=== PATIENT | female | born 1990 | race Caucasian/White ===

== ENCOUNTER 2017-06-13 17:09 | Emergency (ER) | payer OTHER | END 2017-06-13 18:03 | disposition home or self-care (01) | LOC: E/R 17:09 | DX: H11.421 Conjunctival edema, right eye (principal) | CPT/HCPCS: 99283; Z7502 ==

== ENCOUNTER 2018-04-04 17:43 | Emergency (ER) | payer OTHER ==
[2018-04-04] MEDS: ONDANSETRON (ODT) 4 MG TAB ODT (18:39)
[2018-04-04 18:48] LABS: ADD MAN DIFF? NO
[2018-04-04 18:50] LABS: BASOPHILS % 0.2 % (0.0-2.0); EOSINOPHILS % 0.4 % (0.0-7.0); HEMATOCRIT 38.7 % (37.0-47.0); HEMOGLOBIN 12.9 g/dl (12.0-16.0); LYMPHOCYTES # 1.2 10^3/ul (0.8-2.9); LYMPHOCYTES % 10.8 % (15.0-51.0); MEAN CORPUSCULAR HEMOGLOBIN 29.8 pg (29.0-33.0); MEAN CORPUSCULAR HGB CONC 33.3 g/dl (32.0-37.0); MEAN CORPUSCULAR VOLUME 89.4 fl (82.0-101.0); MEAN PLATELET VOLUME 9.8 fl (7.4-10.4); MONOCYTE # 0.5 10^3/ul (0.3-0.9); MONOCYTES % 4.9 % (0.0-11.0); NEUTROPHIL # 8.9 10^3/ul (1.6-7.5); NEUTROPHILS % 83.3 % (39.0-77.0); PLATELET COUNT 345 10^3/UL (140-415); RED BLOOD COUNT 4.33 10^6/ul (4.20-5.40); RED CELL DISTRIBUTION WIDTH 14.1 % (11.5-14.5)
[2018-04-04 18:50] LABS: WHITE BLOOD COUNT 10.6 10^3/ul (4.8-10.8)
[2018-04-04 19:29] LABS: ALANINE AMINOTRANSFERASE 20 IU/L (13-69); ALBUMIN 3.8 g/dl (3.3-4.9); ALBUMIN/GLOBULIN RATIO 1.22; ALKALINE PHOSPHATASE 70 IU/L (42-121); ANION GAP 9 (5-13); ASPARTATE AMINO TRANSFERASE 13 IU/L (15-46); BILIRUBIN,INDIRECT 0.3 mg/dl (0-1.1); BILIRUBIN,TOTAL 0.3 mg/dl (0.2-1.3); BLOOD UREA NITROGEN 4 mg/dl (7-20); CALCIUM 9.2 mg/dl (8.4-10.2); CARBON DIOXIDE 22 mmol/L (21-31); CHLORIDE 106 mmol/L (97-110); CREATININE 0.45 mg/dl (0.44-1.00); Estimated GFR > 60 mL/min (>60); GLUCOSE 110 mg/dl (70-220); LIPASE 35 U/L (23-300); POTASSIUM 4.1 mmol/L (3.5-5.1); SODIUM 137 mmol/L (135-144); TOTAL PROTEIN 6.9 g/dl (6.1-8.1)
[2018-04-04 19:52] LABS: ADD UMIC YES; UR ASCORBIC ACID NEGATIVE (NEGATIVE); UR BILIRUBIN (Dip) NEGATIVE (NEGATIVE); UR BLOOD (Dip) NEGATIVE (NEGATIVE); UR CLARITY CLOUDY (CLEAR); UR COLOR AMBER (YELLOW); UR GLUCOSE (Dip) NEGATIVE (NEGATIVE); UR KETONES (Dip) 1+ mg/dL (NEGATIVE); UR LEUKOCYTE ESTERASE (Dip) TRACE Leu/ul (NEGATIVE); UR MUCUS MANY /HPF (NONE SEEN); UR NITRITE (Dip) NEGATIVE (NEGATIVE); UR RBC 2 /HPF (0-5); UR SPECIFIC GRAVITY (Dip) 1.027 (1.003-1.030); UR SQUAMOUS EPITHELIAL CELL FEW /HPF (FEW); UR TOTAL PROTEIN (Dip) 1+ mg/dl (NEGATIVE); UR UROBILINOGEN (Dip) 1+ mg/dL (NEGATIVE); UR WBC 3 /HPF (0-5)
== END 2018-04-04 20:42 | disposition home or self-care (01) ==
LOC: FTE 17:43
DX: O26.892 Other specified pregnancy related conditions, second trimester (principal); R10.13 Epigastric pain; R40.2412 Glasgow coma scale score 13-15, at arrival to emergency department; O21.9 Vomiting of pregnancy, unspecified; Z3A.19 19 weeks gestation of pregnancy
CPT/HCPCS: 36415; 80053; 81001; 83690; 85025; 99283

== ENCOUNTER 2018-06-24 12:35 | Outpatient (CLI) | payer OTHER ==
[2018-06-24 14:03] LABS: ADD UMIC YES; UR ASCORBIC ACID NEGATIVE (NEGATIVE); UR BACTERIA FEW /HPF (NONE SEEN); UR BILIRUBIN (Dip) NEGATIVE (NEGATIVE); UR BLOOD (Dip) NEGATIVE (NEGATIVE); UR CLARITY SLIGHTLY CLOUDY (CLEAR); UR COLOR YELLOW (YELLOW); UR GLUCOSE (Dip) NEGATIVE (NEGATIVE); UR KETONES (Dip) 1+ mg/dL (NEGATIVE); UR LEUKOCYTE ESTERASE (Dip) 2+ Leu/ul (NEGATIVE); UR NITRITE (Dip) NEGATIVE (NEGATIVE); UR RBC 0 /HPF (0-5); UR SPECIFIC GRAVITY (Dip) 1.013 (1.003-1.030); UR SQUAMOUS EPITHELIAL CELL FEW /HPF (FEW); UR TOTAL PROTEIN (Dip) NEGATIVE (NEGATIVE); UR UROBILINOGEN (Dip) NEGATIVE (NEGATIVE); UR WBC 4 /HPF (0-5)
[2018-06-24 14:20] LABS: RUPTURE FETAL MEMBRANES NEGATIVE (NEGATIVE)
[2018-06-24 14:24] LABS: AMPHETAMINE/METHAMPHETAMINE Negative (NEGATIVE); BARBITURATES Negative (NEGATIVE); BENZODIAZEPINES Negative (NEGATIVE); CANNABINOIDS Negative (NEGATIVE); COCAINE Negative (NEGATIVE); OPIATES Negative (NEGATIVE)
== END 2018-06-24 15:05 | disposition home or self-care (01) ==
LOC: OBT 12:35 → L-D 12:37 → OBT 15:05
DX: O62.9 Abnormality of forces of labor, unspecified (principal); Z3A.30 30 weeks gestation of pregnancy
CPT/HCPCS: 76815; 76817; 76818; 80307; 81001; 82731; 84112

== ENCOUNTER 2018-08-13 20:00 | Outpatient (CLI) | payer MEDICAID, OTHER | END 2018-08-13 22:55 | disposition home or self-care (01) | LOC: OBT 20:00 → L-D 20:01 → OBT 22:55 | DX: O36.8130 Decreased fetal movements, third trimester, not applicable or unspecified (principal); Z3A.37 37 weeks gestation of pregnancy | CPT/HCPCS: 76815; 76818 ==

== ENCOUNTER 2018-08-22 07:30 | Inpatient (IN) | payer MEDICAID ==
[2018-08-22] MEDS ORDERED: IBUPROFEN 600 MG TAB PO (08:30)
[2018-08-22] MEDS ORDERED: OXYTOCIN 30 UNITS/LR 500 ML IV (08:30)
[2018-08-22] MEDS ORDERED: METHYLERGONOVINE 0.2 MG INJ IM (08:30)
[2018-08-22] MEDS ORDERED: CARBOPROST 250 MCG INJ IM (08:30)
[2018-08-22] MEDS ORDERED: LIDOCAINE 1% (MPF) 30 ML INJ INJ (08:30)
[2018-08-22] MEDS ORDERED: MISOPROSTOL 200 MCG TAB PR (08:30)
[2018-08-22] MEDS ORDERED: BUTORPHANOL 2 MG INJ IV (08:30)
[2018-08-22 08:56] LABS: ADD MAN DIFF? NO
[2018-08-22 09:03] LABS: BASOPHILS % 0.4 % (0.0-2.0); EOSINOPHILS # 0.2 10^3/ul (0.0-0.5); EOSINOPHILS % 1.4 % (0.0-7.0); HEMATOCRIT 34.6 % (37.0-47.0); HEMOGLOBIN 11.5 g/dl (12.0-16.0); LYMPHOCYTES # 2.6 10^3/ul (0.8-2.9); LYMPHOCYTES % 24.4 % (15.0-51.0); MEAN CORPUSCULAR HGB CONC 33.2 g/dl (32.0-37.0); MEAN CORPUSCULAR VOLUME 84.4 fl (82.0-101.0); MEAN PLATELET VOLUME 10.5 fl (7.4-10.4); MONOCYTE # 0.8 10^3/ul (0.3-0.9); MONOCYTES % 7.3 % (0.0-11.0); NEUTROPHIL # 7.1 10^3/ul (1.6-7.5); PLATELET COUNT 301 10^3/UL (140-415); RED CELL DISTRIBUTION WIDTH 15.5 % (11.5-14.5)
[2018-08-22 09:03] LABS: WHITE BLOOD COUNT 10.7 10^3/ul (4.8-10.8)
[2018-08-22 09:21] LABS: PROTIME 13.3 Sec (11.9-14.9)
[2018-08-22] MEDS: OXYTOCIN 30 UNITS/LR 500 ML IV (09:29)
[2018-08-22] MEDS: LACTATED RINGER'S 1,000 ML IV ×3 (09:30→17:44)
[2018-08-22 09:57] LABS: HEPATITIS B SURFACE ANTIGEN NEGATIVE (NEGATIVE)
[2018-08-22 15:59] LABS: RAPID PLASMA REAGIN NONREACTIVE (NR)
[2018-08-23] MEDS: LACTATED RINGER'S 1,000 ML IV ×2 (02:02→03:17)
[2018-08-23] MEDS ORDERED: NALOXONE (0.4 MG/ML) INJ IV (03:00)
[2018-08-23] MEDS: OXYTOCIN 30 UNITS/LR 500 ML IV ×3 (06:11→10:27)
[2018-08-23] MEDS: FENTAnyl 2MCG/ML-ROPIV 0.2% 100 ML BAG EPI (06:17)
[2018-08-23] MEDS ORDERED: METHYLERGONOVINE 0.2 MG INJ IM (10:30)
[2018-08-23] MEDS ORDERED: MISOPROSTOL 200 MCG TAB PR (10:30)
[2018-08-23] MEDS ORDERED: ACETAMINOPHEN 325 MG TAB PO (10:30)
[2018-08-23] MEDS ORDERED: NACL 0.9% 3 ML SYG IV (10:30)
[2018-08-23] MEDS ORDERED: OXYTOCIN 30 UNITS/LR 500 ML IV (10:30)
[2018-08-23] MEDS ORDERED: OXYCODONE/ASPIRIN (4.88/325) TAB PO ×2 (10:30)
[2018-08-23] MEDS ORDERED: CARBOPROST 250 MCG INJ IM (10:30)
[2018-08-23] MEDS: IBUPROFEN 600 MG TAB PO ×3 (11:25→23:36)
[2018-08-23] MEDS: SENNA/DOCUSATE NA (8.6MG/50MG) TAB PO ×2 (12:00→21:33)
[2018-08-23] MEDS: WITCH HAZEL/GLYCERIN PAD PR (16:42)
[2018-08-23] MEDS: BENZOCAINE 20% 56 ML SPRAY TOP (16:42)
[2018-08-23] MEDS: LANOLIN HPA 1 PKT TOP (16:46)
[2018-08-24 05:21] LABS: ADD MAN DIFF? NO
[2018-08-24 05:30] LABS: BASOPHILS % 0.4 % (0.0-2.0); EOSINOPHILS # 0.1 10^3/ul (0.0-0.5); EOSINOPHILS % 1.3 % (0.0-7.0); HEMATOCRIT 33.7 % (37.0-47.0); HEMOGLOBIN 10.8 g/dl (12.0-16.0); LYMPHOCYTES # 3.4 10^3/ul (0.8-2.9); LYMPHOCYTES % 35.1 % (15.0-51.0); MEAN CORPUSCULAR HEMOGLOBIN 27.8 pg (29.0-33.0); MEAN CORPUSCULAR VOLUME 86.6 fl (82.0-101.0); MEAN PLATELET VOLUME 10.7 fl (7.4-10.4); MONOCYTE # 0.7 10^3/ul (0.3-0.9); MONOCYTES % 7.3 % (0.0-11.0); NEUTROPHIL # 5.4 10^3/ul (1.6-7.5); NEUTROPHILS % 55.4 % (39.0-77.0); PLATELET COUNT 288 10^3/UL (140-415); RED BLOOD COUNT 3.89 10^6/ul (4.20-5.40); RED CELL DISTRIBUTION WIDTH 15.5 % (11.5-14.5)
[2018-08-24 05:30] LABS: WHITE BLOOD COUNT 9.7 10^3/ul (4.8-10.8)
[2018-08-24] MEDS: IBUPROFEN 600 MG TAB PO ×4 (05:35→23:44)
[2018-08-24] MEDS: SENNA/DOCUSATE NA (8.6MG/50MG) TAB PO ×2 (11:58→21:44)
[2018-08-25] MEDS: IBUPROFEN 600 MG TAB PO ×2 (05:33→11:47)
[2018-08-25] MEDS: SENNA/DOCUSATE NA (8.6MG/50MG) TAB PO (09:00)
[2018-08-25] MEDS: DIPHTH/TET/ACEL PERTUSS (ADULT) 0.5 ML VIAL IM* (10:05)
== END 2018-08-25 13:00 | disposition home or self-care (01) | DRG 807 ==
LOC: L-D 07:30 → MS1 08-23 09:04
PROVIDERS: Obstetrics & Gynecology
PROC: 4A1HXCZ Monitoring of Products of Conception, Cardiac Rate, External Approach (ICD-10-PCS; 2018-08-22 07:30)
PROC: 3E0P7GC Introduction of Other Therapeutic Substance into Female Reproductive, Via Natural or Artificial Opening (ICD-10-PCS; 2018-08-22 07:30)
DX: O41.03X0 Oligohydramnios, third trimester, not applicable or unspecified (principal); Z37.0 Single live birth; O69.81X0 Labor and delivery complicated by cord around neck, without compression, not applicable or unspecified; Z3A.39 39 weeks gestation of pregnancy; Z23 Encounter for immunization
CPT/HCPCS: 62319; 76815; 85025; 85610; 85730; 86592; 86850; 86900; 86901; 87340; 90715

== ENCOUNTER 2018-08-31 16:10 | Inpatient (IN) | payer SELFPAY, MEDICAID ==
[2018-08-31] MEDS ORDERED: AZTREONAM 1 GM/NS (PMX) 50 ML IVPB (16:40)
[2018-08-31] MEDS ORDERED: VANCOMYCIN 1 GM (PMX) 250 ML IVPB (16:40)
[2018-08-31] MEDS: SODIUM CHLORIDE 0.9% 1L BAG IV* (16:44)
[2018-08-31 16:50] LABS: ADD MAN DIFF? NO
[2018-08-31 16:56] LABS: WHITE BLOOD COUNT 10.4 10^3/ul (4.8-10.8)
[2018-08-31 16:56] LABS: BASOPHILS % 0.4 % (0.0-2.0); EOSINOPHILS # 0.1 10^3/ul (0.0-0.5); HEMATOCRIT 41.4 % (37.0-47.0); HEMOGLOBIN 13.5 g/dl (12.0-16.0); LYMPHOCYTES # 1.4 10^3/ul (0.8-2.9); LYMPHOCYTES % 13.6 % (15.0-51.0); MEAN CORPUSCULAR HEMOGLOBIN 27.6 pg (29.0-33.0); MEAN CORPUSCULAR HGB CONC 32.6 g/dl (32.0-37.0); MEAN CORPUSCULAR VOLUME 84.5 fl (82.0-101.0); MEAN PLATELET VOLUME 9.7 fl (7.4-10.4); MONOCYTE # 0.6 10^3/ul (0.3-0.9); MONOCYTES % 5.4 % (0.0-11.0); NEUTROPHIL # 8.2 10^3/ul (1.6-7.5); NEUTROPHILS % 79.2 % (39.0-77.0); PLATELET COUNT 409 10^3/UL (140-415); RED CELL DISTRIBUTION WIDTH 15.8 % (11.5-14.5)
[2018-08-31] MEDS ORDERED: CLINDAMYCIN 900 MG INJ IV (17:00)
[2018-08-31] MEDS ORDERED: GENTAMICIN IVPB (17:00)
[2018-08-31] MEDS ORDERED: SOD CHLORIDE 0.9% IVPB (17:00)
[2018-08-31] MEDS: IBUPROFEN 800 MG TAB PO (17:03)
[2018-08-31] MEDS: morphine 4 MG/ML VIAL IV (17:03)
[2018-08-31 17:11] LABS: INR 0.96; PROTIME 12.9 Sec (11.9-14.9)
[2018-08-31] MEDS: CLINDAMYCIN 900 MG/D5W (PMX) 50 ML IVPB (17:15)
[2018-08-31 17:16] LABS: LACTIC ACID 1.9 mmol/L (0.5-2.0)
[2018-08-31 17:17] LABS: ALANINE AMINOTRANSFERASE 26 IU/L (13-69); ALBUMIN/GLOBULIN RATIO 1.11; ALKALINE PHOSPHATASE 138 IU/L (42-121); ANION GAP 14 (5-13); ASPARTATE AMINO TRANSFERASE 20 IU/L (15-46); BILIRUBIN,INDIRECT 0.2 mg/dl (0-1.1); BILIRUBIN,TOTAL 0.2 mg/dl (0.2-1.3); BLOOD UREA NITROGEN 12 mg/dl (7-20); CALCIUM 8.8 mg/dl (8.4-10.2); CARBON DIOXIDE 21 mmol/L (21-31); CHLORIDE 104 mmol/L (97-110); CREATININE 0.85 mg/dl (0.44-1.00); Estimated GFR > 60 mL/min (>60); GLUCOSE 97 mg/dl (70-220); LIPASE 88 U/L (23-300); SODIUM 139 mmol/L (135-144); TOTAL PROTEIN 7.6 g/dl (6.1-8.1)
[2018-08-31 17:58] LABS: ADD UMIC YES; UR ASCORBIC ACID NEGATIVE (NEGATIVE); UR BACTERIA FEW /HPF (NONE SEEN); UR BILIRUBIN (Dip) NEGATIVE (NEGATIVE); UR BLOOD (Dip) 1+ mg/dL (NEGATIVE); UR CLARITY CLEAR (CLEAR); UR COLOR YELLOW (YELLOW); UR GLUCOSE (Dip) NEGATIVE (NEGATIVE); UR KETONES (Dip) NEGATIVE (NEGATIVE); UR LEUKOCYTE ESTERASE (Dip) NEGATIVE Leu/ul (NEGATIVE); UR NITRITE (Dip) NEGATIVE (NEGATIVE); UR RBC 2 /HPF (0-5); UR SPECIFIC GRAVITY (Dip) 1.012 (1.003-1.030); UR TOTAL PROTEIN (Dip) NEGATIVE (NEGATIVE); UR UROBILINOGEN (Dip) NEGATIVE (NEGATIVE); UR WBC 2 /HPF (0-5)
[2018-08-31] MEDS: GENTAMICIN 360 MG in DEXTROSE 5% 100 ML IVPB (18:03)
[2018-08-31 19:12] LABS: LACTIC ACID 1.5 mmol/L (0.5-2.0)
[2018-08-31] MEDS ORDERED: PROCHLORPERAZINE 10 MG INJ IV (23:30)
[2018-08-31] MEDS ORDERED: MEPERIDINE 25 MG INJ IV (23:30)
[2018-08-31] MEDS ORDERED: FENTAnyl 50 MCG/ML VIAL IV ×3 (23:30)
[2018-08-31] MEDS ORDERED: HYDROmorphONE 1 MG/5 ML IV SYRINGE IV (23:30)
[2018-08-31] MEDS ORDERED: MIDAZOLAM 1 MG/ML 2 ML INJ (23:46)
[2018-08-31] MEDS ORDERED: morphine SULFATE/PF (10 MG/10 ML) INJ (23:46)
[2018-09-01] MEDS ORDERED: FAMOTIDINE 20 MG INJ (00:23)
[2018-09-01] MEDS ORDERED: ONDANSETRON 4 MG INJ (00:23)
[2018-09-01] MEDS ORDERED: LIDOCAINE 2% (SDV) 5 ML INJ (00:23)
[2018-09-01] MEDS ORDERED: SUCCINYLCHOLINE CHLORIDE 100 MG/5 ML SYG IV (00:23)
[2018-09-01] MEDS ORDERED: PROPOFOL 40 ML (00:23)
[2018-09-01] MEDS ORDERED: DEXAMETHASONE 4 MG/ML 5 ML INJ (00:23)
[2018-09-01] MEDS ORDERED: ROCURONIUM 50 MG INJ (00:23)
[2018-09-01] MEDS ORDERED: CLINDAMYCIN 900 MG/D5W (PMX) 50 ML IVPB (00:37)
[2018-09-01] MEDS ORDERED: HYDROmorphONE 0.5 MG/0.5 ML SYG IV (01:00)
[2018-09-01] MEDS ORDERED: KETOROLAC 30 MG INJ IV (01:00)
[2018-09-01] MEDS ORDERED: ONDANSETRON 4 MG INJ IV ×3 (01:00→05:00)
[2018-09-01] MEDS ORDERED: DIPHENHYDRAMINE 50 MG INJ IV (01:00)
[2018-09-01] MEDS ORDERED: NALBUPHINE HCL (10 MG/1 ML) INJ IV (01:00)
[2018-09-01] MEDS ORDERED: NALOXONE (0.4 MG/ML) INJ IV (01:00)
[2018-09-01] MEDS ORDERED: SUGAMMADEX SODIUM 200 MG/2 ML VIAL IV ×2 (01:18→01:21)
[2018-09-01] MEDS ORDERED: MIDAZOLAM 1 MG/ML 2 ML INJ (01:51)
[2018-09-01] MEDS: ONDANSETRON 4 MG INJ IV (01:57)
[2018-09-01] MEDS: MIDAZOLAM 1 MG/ML 2 ML INJ IV (01:57)
[2018-09-01] MEDS: HYDROmorphONE 1 MG/5 ML IV SYRINGE IV ×2 (01:58→02:31)
[2018-09-01 03:09] LABS: ANION GAP 10 (5-13); BLOOD UREA NITROGEN 11 mg/dl (7-20); CALCIUM 8.4 mg/dl (8.4-10.2); CARBON DIOXIDE 20 mmol/L (21-31); CHLORIDE 111 mmol/L (97-110); CREATININE 0.53 mg/dl (0.44-1.00); Estimated GFR > 60 mL/min (>60); GLUCOSE 95 mg/dl (70-220); SODIUM 141 mmol/L (135-144)
[2018-09-01] MEDS: DIPHENHYDRAMINE 50 MG INJ IV (03:22)
[2018-09-01] MEDS: LACTATED RINGER'S 1,000 ML IV ×3 (03:52→18:57)
[2018-09-01] MEDS: HYDROmorphONE 0.5 MG/0.5 ML SYG IV (05:03)
[2018-09-01 05:14] LABS: ADD MAN DIFF? NO
[2018-09-01 05:20] LABS: BASOPHILS % 0.3 % (0.0-2.0); EOSINOPHILS % 0.1 % (0.0-7.0); HEMATOCRIT 40.4 % (37.0-47.0); HEMOGLOBIN 13.1 g/dl (12.0-16.0); LYMPHOCYTES # 0.8 10^3/ul (0.8-2.9); LYMPHOCYTES % 7.8 % (15.0-51.0); MEAN CORPUSCULAR HEMOGLOBIN 27.9 pg (29.0-33.0); MEAN CORPUSCULAR HGB CONC 32.4 g/dl (32.0-37.0); MEAN PLATELET VOLUME 10.1 fl (7.4-10.4); MONOCYTE # 0.2 10^3/ul (0.3-0.9); NEUTROPHIL # 9.1 10^3/ul (1.6-7.5); PLATELET COUNT 339 10^3/UL (140-415); RED CELL DISTRIBUTION WIDTH 15.8 % (11.5-14.5)
[2018-09-01 05:20] LABS: WHITE BLOOD COUNT 10.2 10^3/ul (4.8-10.8)
[2018-09-01 06:07] LABS: ALANINE AMINOTRANSFERASE 21 IU/L (13-69); ALBUMIN 3.6 g/dl (3.3-4.9); ALBUMIN/GLOBULIN RATIO 1.09; ALKALINE PHOSPHATASE 125 IU/L (42-121); ANION GAP 11 (5-13); ASPARTATE AMINO TRANSFERASE 17 IU/L (15-46); BILIRUBIN,INDIRECT 0.2 mg/dl (0-1.1); BILIRUBIN,TOTAL 0.2 mg/dl (0.2-1.3); BLOOD UREA NITROGEN 11 mg/dl (7-20); CALCIUM 8.6 mg/dl (8.4-10.2); CARBON DIOXIDE 21 mmol/L (21-31); CHLORIDE 108 mmol/L (97-110); CREATININE 0.55 mg/dl (0.44-1.00); Estimated GFR > 60 mL/min (>60); GLUCOSE 108 mg/dl (70-220); SODIUM 140 mmol/L (135-144); TOTAL PROTEIN 6.9 g/dl (6.1-8.1)
[2018-09-01] MEDS ORDERED: EPHEDrine SULFATE 50 MG/5 ML SYG (07:00)
[2018-09-01] MEDS ORDERED: PHENYLephrine (100 MCG/ML) 5ML SYG (07:00)
[2018-09-01] MEDS ORDERED: CLINDAMYCIN 900 MG INJ IV (09:00)
[2018-09-01] MEDS ORDERED: OXYCODONE/ACETAMINOPHEN (5/325) TAB PO (09:46)
[2018-09-01] MEDS: CLINDAMYCIN 900 MG/D5W (PMX) 50 ML IVPB ×2 (10:59→18:57)
[2018-09-01] MEDS: INFLUENZA VIRUS VACCINE 0.5 ML (DISPENSING) IM* (10:59)
[2018-09-01] MEDS: OXYCODONE/ACETAMINOPHEN (5/325) TAB PO ×2 (11:12→21:03)
[2018-09-01] MEDS: ENOXAPARIN 40 MG/0.4 ML SYG SC (15:34)
[2018-09-01] MEDS: IBUPROFEN 600 MG TAB PO (17:04)
[2018-09-02] MEDS: CLINDAMYCIN 900 MG/D5W (PMX) 50 ML IVPB (00:51)
[2018-09-02] MEDS ORDERED: OXYCODONE/ACETAMINOPHEN (5/325) TAB PO ×2 (01:00)
[2018-09-02] MEDS ORDERED: morphine 4 MG/ML VIAL IV (01:00)
[2018-09-02] MEDS: LACTATED RINGER'S 1,000 ML IV ×4 (03:00→22:01)
[2018-09-02] MEDS: OXYCODONE/ACETAMINOPHEN (5/325) TAB PO ×4 (06:54→22:34)
[2018-09-02] MEDS: metroNIDAZOLE 500 MG TAB PO ×2 (09:09→22:29)
[2018-09-02] MEDS: CEPHALEXIN 500 MG CAP PO ×2 (09:09→22:30)
[2018-09-02] MEDS: IBUPROFEN 600 MG TAB PO (11:12)
[2018-09-02] MEDS: IBUPROFEN 800 MG TAB PO ×2 (13:30→18:42)
[2018-09-02] MEDS: ENOXAPARIN 40 MG/0.4 ML SYG SC (14:17)
[2018-09-03] MEDS: IBUPROFEN 800 MG TAB PO ×4 (00:39→20:02)
[2018-09-03] MEDS: OXYCODONE/ACETAMINOPHEN (5/325) TAB PO ×2 (05:34→16:24)
[2018-09-03] MEDS: LACTATED RINGER'S 1,000 ML IV ×2 (06:11→16:20)
[2018-09-03] MEDS: CEPHALEXIN 500 MG CAP PO ×2 (09:38→20:59)
[2018-09-03] MEDS: metroNIDAZOLE 500 MG TAB PO ×2 (09:38→20:59)
[2018-09-04] MEDS: LACTATED RINGER'S 1,000 ML IV ×3 (01:00→18:54)
[2018-09-04] MEDS: IBUPROFEN 800 MG TAB PO ×4 (02:21→19:59)
[2018-09-04] MEDS: metroNIDAZOLE 500 MG TAB PO ×2 (08:55→19:59)
[2018-09-04] MEDS: CEPHALEXIN 500 MG CAP PO ×2 (08:55→19:59)
[2018-09-04] MEDS: OXYCODONE/ACETAMINOPHEN (5/325) TAB PO (13:20)
== END 2018-09-04 21:10 | disposition home or self-care (01) | DRG 737 ==
LOC: MS1 23:13 → SDS 23:23 → MS1 09-01 02:16 → FTE 16:10
PROC: 0UB10ZZ Excision of Left Ovary, Open Approach (ICD-10-PCS; principal; 2018-08-31 23:42)
PROC: 0D9W0ZX Drainage of Peritoneum, Open Approach, Diagnostic (ICD-10-PCS; 2018-08-31 23:42)
DX: D39.12 Neoplasm of uncertain behavior of left ovary (principal); N83.512 Torsion of left ovary and ovarian pedicle; Z68.41 Body mass index [BMI] 40.0-44.9, adult; N39.0 Urinary tract infection, site not specified; E66.01 Morbid (severe) obesity due to excess calories; G89.18 Other acute postprocedural pain; N89.8 Other specified noninflammatory disorders of vagina
CPT/HCPCS: 36415; 71045; 74176; 76856; 80048; 80053; 81001; 83605; 83690; 85025; 85610; 85730; 87040-91; 87081; 87086; 88104; 88107; 88305; 90686; 93005; 96374; 96375; 99291-25